=== PATIENT | female | born 1965 | race Two or more races ===

== ENCOUNTER 2024-10-15 15:10 | Inpatient (IN) | payer MEDICARE, OTHER ==
[~2024-10-15] VITALS: Ht 165.1 cm; Wt 86.2 kg
[2024-10-15 15:56] LABS: APPEARANCE,URINE CLEAR (CLEAR); BILIRUBIN,URINE Negative (NEGATIVE); BLOOD, URINE Trace-lysed Ery/uL (NEGATIVE); COLOR,URINE YELLOW (YELLOW); KETONES,URINE Negative (NEGATIVE); LEUKOCYTE ESTERASE ,URINE Small (NEGATIVE); PH,URINE 5.5 (5.0-8.0); PROTEIN,URINE Negative (NEGATIVE); UGLUCOSE Negative (NEGATIVE); UROBILINOGEN,URINE 0.2 EU/dL (0.2)
[2024-10-15 15:58] LABS: NITRITE, URINE NEGATIVE (NEGATIVE)
[2024-10-15 15:59] LABS: ADD URINE CULTURE YES; BACTERIA,URINE Few /HPF (None Seen); SQUAMOUS EPITHELIAL CELL,UR Few /HPF (None Seen)
[2024-10-15 16:03] LABS: BASOPHILS # (AUTO) 0.1 K/uL (0.0-0.2); BASOPHILS % (AUTO) 0.6 % (0.0-2.0); EOSINOPHILS # (AUTO) 0.3 K/uL (0.0-0.7); HEMATOCRIT 38 % (33-45); HEMOGLOBIN 12.5 g/dL (11.5-14.8); LYMPHOCYTES # (AUTO) 1.6 K/uL (0.8-4.8); LYMPHOCYTES % (AUTO) 19.1 % (20.0-44.0); MEAN CORPUSCULAR HEMOGLOBIN 28 PG (26.0-33.0); MEAN CORPUSCULAR HGB CONC 33 g/dl (31.0-36.0); MEAN CORPUSCULAR VOLUME 86 fL (82-100); MONOCYTES % (AUTO) 11.7 % (2.0-12.0); NEUTROPHILS # (AUTO) 5.5 K/uL (1.8-8.9); NEUTROPHILS % (AUTO) 64.6 % (43.0-81.0); PLATELET COUNT (AUTO) 232 K/uL (150-450); RED BLOOD CELL COUNT(AUTO) 4.43 MIL/uL (4.0-5.2); RED CELL DISTRIBUTION WIDTH 12.8 % (11.5-15.0); WHITE BLOOD COUNT (AUTO) 8.6 K/uL (4.3-11.0)
[2024-10-15 16:04] LABS: AMPHETAMINE, URINE NEGATIVE (NEGATIVE); BARBITURATE, URINE NEGATIVE (NEGATIVE); BENZODIAZEPINE, URINE NEGATIVE (NEGATIVE); CANNABINOID, URINE NEGATIVE (NEGATIVE); COCCAINE, URINE NEGATIVE (NEGATIVE); OPIATE, URINE NEGATIVE (NEGATIVE); PHENCYCLIDINE SCREEN,URINE NEGATIVE (NEGATIVE)
[2024-10-15 16:13] LABS: CALCIUM, SERUM 9.3 mg/dL (8.5-10.1); CARBON DIOXIDE 23 mmol/L (21-32); CHLORIDE 104 mmol/L (98-107); CREATININE 1.2 mg/dL (0.6-1.3); GLUCOSE 138 mg/dL (74-106); POTASSIUM 4.4 mmol/L (3.5-5.1); SODIUM SERUM 137 mmol/L (136-145); UREA NITROGEN, BLOOD 37 mg/dL (7-18)
[2024-10-15 16:20] LABS: ALANINE AMINOTRANSFERASE 21 U/L (12-78); ALBUMIN 3.7 g/dL (3.4-5.0); ALKALINE PHOSPHATASE 71 U/L (46-116); ASPARTATE AMINOTRANSFERASE 21 U/L (15-37); BILIRUBIN,DIRECT 0.1 mg/dL (0.0-0.2); BILIRUBIN,TOTAL 0.3 mg/dL (0.2-1.0); TOTAL PROTEIN, SERUM 7.7 g/dL (6.4-8.2)
[2024-10-15 16:21] LABS: ACETAMINOPHEN <10 ug/ml (10-30); ALCOHOL, BLOOD < 3 mg/dL (0-10); SALICYLATE 1.1 mg/dL (2.8-20.0)
[2024-10-15] MEDS ORDERED: MORPHINE SULFATE INJ 2 MG/ML DISP.SYRIN IV PRN (18:00)
[2024-10-15] MEDS ORDERED: MAGNESIUM HYDROXIDE 30 ML UDC PO PRN (18:30)
[2024-10-15] MEDS: BLOOD SUGAR DIAGNOSTIC 1 EACH STRIP IN ONE (19:58)
[2024-10-15 21:46] VITALS: BP 112/72; TEMP 98.2; O2SAT 97
[2024-10-15] MEDS: TEMAZEPAM 7.5 MG CAPSULE PO PRN (21:51)
[2024-10-15] MEDS ORDERED: METF500T PO (22:44)
[2024-10-15] MEDS ORDERED: METO25TA20 PO (22:44)
[2024-10-16] MEDS ORDERED: LOSA50TA39 PO (00:27)
[2024-10-16] MEDS ORDERED: LINA290C PO (00:27)
[2024-10-16] MEDS ORDERED: ALBU2.5V11 NEB (00:27)
[2024-10-16] MEDS ORDERED: CYAN-51 PO (00:27)
[2024-10-16] MEDS ORDERED: ASPI-1420 PO (00:27)
[2024-10-16] MEDS ORDERED: ATOR20TA PO (00:27)
[2024-10-16] MEDS ORDERED: ERGO500093 PO (00:27)
[2024-10-16] MEDS: LORAZEPAM 0.5 MG TABLET PO PRN (01:57)
[2024-10-16] MEDS: ACETAMINOPHEN 325 MG TABLET PO PRN (01:58)
[2024-10-16] MEDS ORDERED: ICOS1CAP PO (07:46)
[2024-10-16] MEDS ORDERED: ALBU18HF2 IH (07:46)
[2024-10-16] MEDS ORDERED: QUET25TA PO (07:46)
[2024-10-16] MEDS ORDERED: TRAZ-182 PO (07:46)
[2024-10-16] MEDS ORDERED: METF-442 PO (07:46)
[2024-10-16] MEDS ORDERED: MAGN400T52 PO (07:46)
[2024-10-16] MEDS ORDERED: METO25TA4 PO (07:46)
[2024-10-16] MEDS ORDERED: POTA-10 PO (07:46)
[2024-10-16] MEDS ORDERED: SERT100T12 PO (07:46)
[2024-10-16 08:00] VITALS: BP 137/81; TEMP 98; O2SAT 100
[2024-10-16] MEDS: METOPROLOL TARTRATE 25 MG TABLET PO SCH (08:21)
[2024-10-16 08:25] LABS: ALBUMIN 4.1 g/dL (3.4-5.0); BILIRUBIN,TOTAL 0.4 mg/dL (0.2-1.0); CALCIUM, SERUM 9.6 mg/dL (8.5-10.1); CREATININE 1.1 mg/dL (0.6-1.3); POTASSIUM 4.7 mmol/L (3.5-5.1); TOTAL PROTEIN, SERUM 8.3 g/dL (6.4-8.2)
[2024-10-16] MEDS: METFORMIN 500 MG TABLET PO SCH ×2 (08:31→16:31)
[2024-10-16 09:00] LABS: CHOLESTEROL 106 mg/dL (<200); HDL CHOLESTEROL 54 mg/dL (40-60); TRIGLYCERIDES 54 mg/dL (30-150)
[2024-10-16] MEDS ORDERED: CEPHALEXIN MONOHYDRATE 250 MG/5 ML BOTTLE PO SCH (10:30)
[2024-10-16] MEDS: CYANOCOBALAMIN 500 MCG TABLET PO SCH (10:52)
[2024-10-16] MEDS ORDERED: ALBUTEROL FS 2.5 MG/3 ML VIAL.NEB NEB PRN (11:00)
[2024-10-16] MEDS: TRAMADOL HCL 50 MG TABLET PO PRN (13:55)
[2024-10-16] MEDS: OLANZAPINE 10 MG VIAL IM ONE (14:23)
[2024-10-16 16:00] VITALS: BP 134/80; TEMP 98; O2SAT 99
[2024-10-16] MEDS: risperiDONE 1 MG TABLET PO SCH (16:31)
[2024-10-16] MEDS: MAGNESIUM OXIDE 400 MG TABLET PO SCH (16:31)
[2024-10-16] MEDS: MAG HYDROX/AL HYDROX/SIMETH 30 ML UDC PO PRN (18:01)
[2024-10-16 20:45] VITALS: BP 124/72; TEMP 98; O2SAT 97
[2024-10-16] MEDS: CEPHALEXIN MONOHYDRATE 250 MG CAPSULE PO SCH (21:14)
[2024-10-16] MEDS: ATORVASTATIN 10 MG TABLET PO SCH (21:15)
[2024-10-16 22:37] LABS: LDL 47 mg/dL (0-99)
[2024-10-17] MEDS: TEMAZEPAM 7.5 MG CAPSULE PO PRN (01:47)
[2024-10-17 05:59] VITALS: BP 124/72; TEMP 98; O2SAT 97
[2024-10-17 08:00] VITALS: BP 172/97; TEMP 98.3; O2SAT 99
[2024-10-17] MEDS ORDERED: SERTRALINE HCL 25 MG TABLET PO SCH (09:00)
[2024-10-17] MEDS: ASPIRIN EC 81 MG TABLET.DR PO SCH (09:23)
[2024-10-17] MEDS: LOSARTAN POTASSIUM 50 MG TABLET PO SCH (09:23)
[2024-10-17] MEDS: DIVALPROEX SODIUM 125 MG TABLET.DR PO SCH (12:18)
[2024-10-17] MEDS: LORAZEPAM 0.5 MG TABLET PO PRN (14:07)
[2024-10-17 16:00] VITALS: BP 149/76; TEMP 98; O2SAT 100
[2024-10-17 20:13] VITALS: BP 111/50; TEMP 98; O2SAT 100
[2024-10-18 08:00] VITALS: BP 143/71; TEMP 98; O2SAT 100
[2024-10-18] MEDS ORDERED: ERGOCALCIFEROL (VITAMIN D 2) 50,000 UNIT CAPSULE PO SCH (09:00)
[2024-10-18 16:00] VITALS: BP 104/52; TEMP 97.6; O2SAT 98
[2024-10-18 20:34] VITALS: BP 113/57; TEMP 98.1; O2SAT 98
[2024-10-19 08:00] VITALS: BP 132/69; TEMP 98.7; O2SAT 100
[2024-10-19] MEDS: DIVALPROEX SODIUM 250 MG TABLET.DR PO SCH (08:53)
[2024-10-19 16:06] VITALS: BP 100/61; TEMP 98.2; O2SAT 98
[2024-10-19 20:15] VITALS: BP 114/61; TEMP 98; O2SAT 100
[2024-10-20 08:00] VITALS: BP 132/81; TEMP 97.7; O2SAT 97
[2024-10-20 15:41] VITALS: BP 95/59; TEMP 97.9; O2SAT 100
[2024-10-20 16:00] VITALS: BP 95/59; TEMP 97.9; O2SAT 100
[2024-10-20 20:08] VITALS: BP 112/73; TEMP 97.3; O2SAT 99
[2024-10-21 08:00] VITALS: BP 139/74; TEMP 97.8; O2SAT 100
[2024-10-21 16:00] VITALS: BP 118/67; TEMP 98.4; O2SAT 97
[2024-10-21 20:23] VITALS: BP 104/60; TEMP 98.5; O2SAT 97
[2024-10-22 08:00] VITALS: BP 126/87; TEMP 98.1; O2SAT 97
[2024-10-22] MEDS: risperiDONE 1 MG TABLET PO SCH (14:40)
[2024-10-22 16:03] VITALS: BP 109/98; TEMP 98; O2SAT 100
[2024-10-22 20:09] VITALS: BP 100/62; TEMP 98.6; O2SAT 97
[2024-10-23 06:49] LABS: CALCIUM, SERUM 9.3 mg/dL (8.5-10.1); CREATININE 0.9 mg/dL (0.6-1.3); POTASSIUM 4.1 mmol/L (3.5-5.1)
[2024-10-23 08:00] VITALS: BP 149/77; TEMP 97.7; O2SAT 98
[2024-10-23 16:00] VITALS: BP 144/76; TEMP 98.9; O2SAT 97
[2024-10-23 20:00] VITALS: BP 126/60; TEMP 97.7; O2SAT 98
[2024-10-24 08:00] VITALS: BP 151/79; TEMP 98.6; O2SAT 100
[2024-10-24 16:00] VITALS: BP 125/72; TEMP 98.1; O2SAT 100
[2024-10-24 21:02] VITALS: BP 137/77; TEMP 98.8; O2SAT 99
[2024-10-25 08:00] VITALS: BP 119/93; TEMP 96.8; O2SAT 98
[2024-10-25 16:00] VITALS: BP 133/68; TEMP 97.5; O2SAT 97
[2024-10-25 20:17] VITALS: BP 102/66; TEMP 98.1; O2SAT 97
[2024-10-26 08:00] VITALS: BP 123/68; TEMP 98.6; O2SAT 97
[2024-10-26] MEDS: FLUTICASONE PROPIONATE 16 GM BOTTLE NS SCH (10:34)
[2024-10-26 15:28] VITALS: BP 109/53; TEMP 97.5; O2SAT 98
[2024-10-26 20:49] VITALS: BP 102/56; TEMP 97.8; O2SAT 97
[2024-10-27 08:00] VITALS: BP 125/72; TEMP 98.6; O2SAT 98
[2024-10-27 16:00] VITALS: BP 109/64; TEMP 97.8; O2SAT 97
[2024-10-27 20:33] VITALS: BP 154/78; TEMP 99.1; O2SAT 98
[2024-10-27] MEDS: DIVALPROEX SODIUM 250 MG TABLET.DR PO SCH (21:21)
[2024-10-28 08:00] VITALS: BP 126/63; TEMP 97.8; O2SAT 97
[2024-10-28] MEDS ORDERED: MAGN400T26 PO (14:07)
[2024-10-28] MEDS ORDERED: CYAN500T64 PO (14:07)
[2024-10-28] MEDS ORDERED: Aspirin Ec PO (14:07)
[2024-10-28] MEDS ORDERED: METF-440 PO (14:07)
[2024-10-28] MEDS ORDERED: ATOR20TA PO (14:07)
[2024-10-28] MEDS ORDERED: FLUT16SP16 NS (14:07)
[2024-10-28] MEDS ORDERED: Ergocalciferol (Vitamin D 2) PO (14:07)
[2024-10-28] MEDS ORDERED: LOSA50TA39 PO (14:07)
[2024-10-28] MEDS ORDERED: METO25TA20 PO (14:07)
[2024-10-28 16:04] VITALS: BP 130/57; TEMP 98.1; O2SAT 97
[2024-10-28 20:19] VITALS: BP 110/50; TEMP 98.1; O2SAT 98
[2024-10-29 08:00] VITALS: BP 127/72; TEMP 98.1; O2SAT 98
[2024-10-29 08:13] VITALS: BP 127/72
== END 2024-10-29 11:30 | disposition home or self-care (01) | DRG 885 ==
LOC: ER 15:15 → GPS 17:34 → MEDOV2 10-20 13:05 → GPS 10-20 13:09
PROVIDERS: ADMIT Psychiatry & Neurology Psychosomatic Medicine; ATTEND Nurse Practitioner Acute Care
DX: F39 Unspecified mood [affective] disorder (principal); G93.41 Metabolic encephalopathy; D68.69 Other thrombophilia; N39.0 Urinary tract infection, site not specified; F29 Unspecified psychosis not due to a substance or known physiological condition; I10 Essential (primary) hypertension; J45.909 Unspecified asthma, uncomplicated; Z20.822 Contact with and (suspected) exposure to COVID-19; E11.9 Type 2 diabetes mellitus without complications; E66.01 Morbid (severe) obesity due to excess calories; E78.5 Hyperlipidemia, unspecified; F41.9 Anxiety disorder, unspecified; Z68.31 Body mass index [BMI] 31.0-31.9, adult; K21.9 Gastro-esophageal reflux disease without esophagitis; Z91.81 History of falling; B96.89 Other specified bacterial agents as the cause of diseases classified elsewhere; R62.50 Unspecified lack of expected normal physiological development in childhood; Z79.899 Other long term (current) drug therapy; F32.A Depression, unspecified
CPT/HCPCS: 36415; 80048-TC; 80053-TC; 80061-TC; 80076-TC; 80164-TC; 81001; 82962-TC; 85025-TC; 87081-TC; 87086-TC; 97116-TC; 97530-TC; G0480; J3490